=== PATIENT | male | born 1945 | race Caucasian/White ===

== ENCOUNTER 2016-06-14 08:20 | Emergency (ER) | payer MEDICARE ==
[~2016-06-14 08:20] MED LIST: NALOXONE HCL 2 MG/2 ML IVP ONE
[2016-06-14] MEDS ORDERED: MIDAZOLAM HCL 2 MG/2 ML VIAL IVP ONE ×3 (08:27→09:00)
[2016-06-14] MEDS ORDERED: SUCCINYLCHOLINE CHLORIDE 20 MG/ML 10ML VIAL IVP ONE ×3 (08:29→08:35)
[2016-06-14] MEDS ORDERED: MIDAZOLAM HCL 5 MG/5 ML VIAL IVP ONE ×2 (08:30→08:49)
[2016-06-14] MEDS ORDERED: ROCURONIUM BROMIDE 10 MG/ML 5ML VIAL IVP ONE ×2 (08:33→08:43)
[2016-06-14] MEDS ORDERED: fentaNYL CITRATE/PF 100 MCG/ 2ML AMP ONE (08:48)
[2016-06-14 08:49] LABS: BASOPHILS % 0.1 (0.0-1.5); EOSINOPHILS % 0.2 % (0.0-6.8); MEAN CORPUSCULAR HEMOGLOBIN 32.4 pg (28.0-34.0); MEAN CORPUSCULAR VOLUME 90.6 fl (80.0-100.0); MONOCYTES % 4.3 % (0.0-11.0); NEUTROPHILS # 6.7 # k/uL (1.4-7.7)
[2016-06-14] MEDS ORDERED: fentaNYL CITRATE/PF 100 MCG/ 2ML AMP IVP ONE (08:51)
--- NOTE | 2016-06-14 09:01 | ED Physician Documentation ---
General Adult - HISTORIAN Historian: patient - HPI Stated Complaint: unresponsive Chief Complaint: General Adult Timing: still present Severity: severe Further Comments: yes (Pt is a 70 yo male who was found unresponsive sitting in a vehicle with the engine off. Pt was breathing and had pulse but was breathing slowly on arrival in ER. Some response to pain. Pt had pinpoint pupils on initial exam. He was given 2 mg Narcan IV with no effect. Pt was intubated shortly after arrival. Pt has little PMHx on record apart from HTN.) - ROS CONST: other (pt with LOC, cannot give ROS) EYES/ENT: other (pupils pinpoint) - PAST HX Past History: hypertension, other (back pain) Allergies/Adverse Reactions: Allergies Allergy/AdvReac Type Severity Reaction Status Date / Time meperidine HCl [From Demerol] Allergy Verified 10/17/13 08:04 Penicillins Allergy Verified 10/17/13 08:19 zolpidem tartrate Allergy Verified 10/17/13 08:04 [From Ambien] Home Medications: Ambulatory Orders Medication Instructions Recorded Trazodone HCl [Desyrel] 300 mg PO HS u2 04/21/14 - SOCIAL HX Smoking History: other (unknown smoking status) - FAMILY HX Family History: No - VITAL SIGNS Vital Signs: Vital Signs Temp Pulse Resp BP Pulse Ox 117/67 11/28/14 11:19 - REVIEWED ASSESSMENTS Nursing Assessment Reviewed: Yes Vitals Reviewed: Yes Progress - Progress Progress: Narcan 2 mg IV no change RSI versed 2 mg IV succinylcholine 200 mg IV pt resisting intubation succinylcholine 100 mg x 2 versed 3 mg IV pt still clenching jaw, not ready to intubate, possible infiltration of IV line , 2nd line started Rocuronium 100 mg IV RSI accomplished CXR shows good ET tube placement, L ventricular prominence and prominence of main pulm artery. Rocuronium 100 mg IV fentanyl 100 mcg IV versed 2 mg IV transfer to [facility]. by [facility], Dr. Harden. ED Results Lab/Radiology - Lab Results Lab Results: Lab Results 06/14/16 08:30 WBC 7.70 K/ul K/ul (4.00-12.00) RBC 5.26 M/ul H M/ul (3.90-5.20) Hgb 17.0 g/dL g/dL (12.0-18.0) Hct 47.6 % % (37.0-53.0) MCV 90.6 fl fl (80.0-100.0) MCH 32.4 pg pg (28.0-34.0) MCHC 35.8 g/dL g/dL (30.0-36.0) RDW 13.3 % % (11.3-14.3) Plt Count 164 K/mm3 K/mm3 (130-400) Neut % (Auto) 86.3 % H % (39.0-79.0) Lymph % (Auto) 7.5 % L % (16.0-50.0) [place] % (Auto) 4.3 % % (0.0-11.0) Eos % (Auto) 0.2 % % (0.0-6.8) Baso % (Auto) 0.1 (0.0-1.5) Neut # 6.7 # k/uL # k/uL (1.4-7.7) Lymph # 0.6 # k/uL # k/uL (0.6-4.0) [place] # 0.3 # k/uL # k/uL (0.0-0.9) Eos # 0.0 # k/uL # k/uL (0.0-0.6) Baso # 0.0 # k/uL # k/uL (0.0-0.5) Reactive Lymphs % 1.5 % % (0.0-5.0) Reactive Lymphs # 0.1 # k/uL # k/uL (0.0-0.8) - Orders Orders: ED Orders Category Date Time Status Continuous EKG monitoring Q30M Care 06/14/16 08:27 Active Continuous Pulse Oximetry Q30M Care 06/14/16 08:[address] Saline Lock/IV NOW Care 06/14/16 08:27 Active CHEST 1 VIEW [RAD] Stat Exams 06/14/16 08:27 Ordered CBC/PLATELET/DIFF Routine Lab 06/14/16 08:30 Completed CKMB Stat Lab 06/14/16 08:40 Received CMP Routine Lab 06/14/16 08:30 Received CREATINE KINASE Routine Lab 06/14/16 08:30 Received NT-proBNP Stat Lab 06/14/16 08:40 Received TROPONIN I (cTnI) Stat Lab 04/14/17 08:40 Received Midazolam HCl/Pf [Versed] Med 06/14/16 08:49 Discontinued 5 mg IVP .STK-MED ONE fentaNYL CITRATE/PF [Duragesic] Med 06/14/16 08:48 Discontinued 100 mcg .ROUTE .STK-MED ONE Oxygen Daily Oxygen 06/14/16 08:30 Ordered EKG WITH COMPARISON Stat Ther 06/14/16 08:27 Ordered General Adult Physical Exam - PHYSICAL EXAM GENERAL APPEARANCE: severe distress EENT: other (pupils pinpoint, ? reactive) NECK: normal inspection RESPIRATORY: other (limited excursion) CVS: reg rate & rhythm, heart sounds normal ABDOMEN: soft, no organomegaly, decreased BS BACK: normal inspection SKIN: cyanosis (faint), pallor EXTREMITIES: non-tender NEURO: other (LOC, responds to pain) Discharge Clincal Impression: Loss of consciousness Referrals: Va Porter MD [Primary Care Provider] - Home Medications: Ambulatory Orders Trazodone HCl [Desyrel] 300 mg PO HS u2 04/21/14 Condition: Fair Disposition: 02 XFER SHT-TRM HOSP Decision to Admit: NO Decision Time: 09:09
[2016-06-14 09:03] LABS: eGFR (African) > 60; eGFR (Non-African) > 60
--- NOTE | 2016-06-14 09:42 | Diagnostic Imaging Report ---
ANGELIA FITZGERALD [facility] [address] [facility] [address] [address] Report Submission Date: Jun 14, 2016 9:09:32 AM CDT Patient Study Name: NEHAL BRISCOE Date: Jun 14, 2016 8:45:51 AM CDT Modality Type: CR Gender: M Description: CHEST : 41 Institution: [facility] Physician: ANGELIA FITZGERALD Chest -one view CLINICAL HISTORY: Loss of consciousness. FINDINGS: Examination of the chest in single portable AP view 06/14/2016 0845 hr with no prior film for comparison demonstrates endotracheal tube with the tip 3.1 cm above the mike. Lungs are free of coalescent infiltrate. Cardiac silhouette is prominent. There is prominence of the main pulmonary artery. Monitor leads superimpose the chest. IMPRESSION: Endotracheal tube. Left ventricular prominence. Prominence of the main pulmonary artery. Recommend standard PA and lateral chest x-ray when the patient is able. Electronically signed on Jun 14, 2016 9:09:32 AM CDT by: Reji MCLAUGHLIN
[2016-06-14 11:11] VITALS: BP 148/73
== END 2016-06-14 09:10 | disposition short-term general hospital (02) ==
LOC: ED 08:20
DX: R40.20 Unspecified coma (principal)
CPT/HCPCS: 36415; 51702; 71010; 80053; 82550; 82553; 83880; 84484; 85025; J0330; J2250; J2310; J3010; 31500; 96374; 96375; 96376; 99284; 99285; S1016

== ENCOUNTER 2016-09-18 10:26 | Outpatient (CLI) | payer MEDICARE ==
[2016-09-18 11:05] LABS: eGFR (African) > 60; eGFR (Non-African) > 60
== END 2016-09-18 10:27 ==
LOC: LAB 10:26
PROVIDERS: ATTEND Internal Medicine Gastroenterology
DX: R94.5 Abnormal results of liver function studies (principal)
CPT/HCPCS: 36415; 80053

== ENCOUNTER 2016-10-29 14:19 | Outpatient (CLI) | payer MEDICARE ==
--- NOTE | 2016-10-29 17:09 | Diagnostic Imaging Report ---
[facility] [address] [facility].[address] [address] Report Submission Date: Oct 29, 2016 3:44:44 PM CDT Patient Study Name: NEHAL BRISCOE Date: Oct 29, 2016 2:31:16 PM CDT Modality Type: CR Gender: M Description: SHOULDER : 41 Institution: [facility] Physician: KAT SHEA - GABY Examination: Plain film shoulder History: Discomfort Comparison exams: None provided Findings: 2 views of the right and left shoulders demonstrate normal cortical margins. No evidence for fracture or dislocation. Acromioclavicular joint degenerative spurring. No soft tissue abnormality. Impression: Acromioclavicular joint degenerative spurring. Acute osseous process. If suspect soft tissue abnormality, consider obtaining MRI. Electronically signed on Oct 29, 2016 3:44:44 PM CDT by: Buzz MCLAUGHLIN
--- NOTE | 2016-10-29 17:10 | Diagnostic Imaging Report ---
[facility] [address] [facility].[address] [address] Report Submission Date: Oct 29, 2016 3:57:34 PM CDT Patient Study Name: NEAHL BRISCOE Date: Oct 29, 2016 2:38:38 PM CDT Modality Type: CR Gender: M Description: LOWER EXTREMITY : 41 Institution: [facility] Physician: KAT SHEA - GABY Examination: Plain film knee History: Knee discomfort Findings: 2 views of the right and left knee demonstrates diffuse osteopenia. Tibial spine and patellar spurring. No fracture. No joint effusion. Left knee fixation hardware. No soft tissue irregularity. Impression: Osteopenia and degenerative changes. No fracture. Electronically signed on Oct 29, 2016 3:57:34 PM CDT by: Buzz MCLAUGHLIN
== END 2016-10-29 14:20 ==
LOC: RAD 14:19
PROVIDERS: ATTEND Family Medicine
DX: G89.29 Other chronic pain (principal); M25.511 Pain in right shoulder; M25.512 Pain in left shoulder; M25.561 Pain in right knee; M25.562 Pain in left knee
CPT/HCPCS: 36415; 86431